=== PATIENT | male | born 1965 | race African-American/Black ===

== ENCOUNTER 2017-10-09 12:38 | Emergency (ER) | payer SELFPAY ==
[~2017-10-09] VITALS: Ht 175.3 cm; Wt 75.0 kg
[2017-10-09 12:48] VITALS: BP 127/75
[2017-10-09] MEDS ORDERED: CEFTRIAXONE 250 MG IM ONE (13:30)
[2017-10-09] MEDS ORDERED: AZITHROMYCIN 500 MG TABLET PO ONE (13:30)
[2017-10-09] MEDS ORDERED: CEFTRIAXONE 250 MG ONE (13:42)
[2017-10-09] MEDS ORDERED: LIDOCAINE-MPF 1%, 2ML ONE (13:42)
[2017-10-09] MEDS ORDERED: AZITHROMYCIN 250 MG TABLET ONE (13:45)
== END 2017-10-09 13:54 | disposition home or self-care (01) ==
LOC: ED 13:48
DX: Z20.2 Contact with and (suspected) exposure to infections with a predominantly sexual mode of transmission (principal)
CPT/HCPCS: 87491; 87591; 96372; 99284; J0696

== ENCOUNTER 2018-05-30 22:23 | Emergency (ER) | payer MEDICAID, OTHER ==
[~2018-05-30] VITALS: Ht 175.3 cm; Wt 79.7 kg
[2018-05-30 22:31] VITALS: BP 136/91
[2018-05-30] MEDS ORDERED: AZITHROMYCIN 500 MG TABLET ONE (22:57)
[2018-05-30] MEDS ORDERED: CEFTRIAXONE 250 MG ONE (22:57)
[2018-05-30] MEDS ORDERED: AZITHROMYCIN 500 MG TABLET PO ONE (23:00)
[2018-05-30] MEDS ORDERED: CEFTRIAXONE 1,000 MG IM ONE (23:00)
[2018-05-30] MEDS ORDERED: CEFTRIAXONE 250 MG IM ONE (23:00)
[2018-05-30 23:29] LABS: CULTURE INDICATED? YES; MICROSCOPIC AUTO
== END 2018-05-30 23:47 | disposition home or self-care (01) ==
LOC: ED 23:15
DX: N34.2 Other urethritis (principal); B07.0 Plantar wart
CPT/HCPCS: 81001; 87086; 87491; 87591; 96374; 99283; J0696

== ENCOUNTER 2019-02-14 04:58 | Emergency (ER) | payer MEDICAID ==
[~2019-02-14] VITALS: Ht 172.7 cm; Wt 76.1 kg
[2019-02-14 05:02] VITALS: BP 120/70
== END 2019-02-14 05:54 | disposition home or self-care (01) ==
LOC: ED 05:29
DX: S70.311A Abrasion, right thigh, initial encounter (principal); F17.210 Nicotine dependence, cigarettes, uncomplicated; X58.XXXA Exposure to other specified factors, initial encounter; Y93.89 Activity, other specified; Y92.410 Unspecified street and highway as the place of occurrence of the external cause; Y99.8 Other external cause status
CPT/HCPCS: 90471; 90715; 99283

== ENCOUNTER 2019-07-16 06:55 | Emergency (ER) | payer MEDICAID ==
[~2019-07-16] VITALS: Ht 170.2 cm; Wt 76.4 kg
[2019-07-16 06:56] VITALS: BP 135/84
--- NOTE | 2019-07-16 08:11 | NUR ---
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 PT STATING AGAIN HE NEEDS TO LEAVE, RN EDUCATED PT ON NEED FOR FOLLOW UP. PT REQUESTING LIST OF CLINIC AND LIST OF DENTAL CLINICS. LIST PROVIDED. MD NOTIFIED PT LEFT AMA.
== END 2019-07-16 08:18 | disposition left against medical advice (07) ==
LOC: ED 08:05
DX: N50.9 Disorder of male genital organs, unspecified (principal)
CPT/HCPCS: 99281

== ENCOUNTER 2019-09-08 08:47 | Emergency (ER) | payer MEDICAID ==
[~2019-09-08] VITALS: Ht 170.2 cm; Wt 75.2 kg
--- NOTE | 2019-09-08 09:44 | NUR ---
OCEAN BIOLOGIST: CALLED PT NO ANSWER
--- NOTE | 2019-09-08 09:54 | NUR ---
CARE ANALYST: PT TO ROOM FROM LOBBY VIA
[2019-09-08 10:18] LABS: MICROSCOPIC AUTO
[2019-09-08 10:23] LABS: CULTURE INDICATED? YES
[2019-09-08] MEDS ORDERED: HYDROcodone/APAP 5/325 TABLET PO PRN (10:30)
[2019-09-08] MEDS ORDERED: AZITHROMYCIN 500 MG TABLET PO ONE (10:30)
[2019-09-08] MEDS ORDERED: ONDANSETRON ODT 4 MG PO ONE (11:00)
[2019-09-08] MEDS ORDERED: CEFTRIAXONE 250 MG IM ONE (11:00)
--- NOTE | 2019-09-08 11:07 | NUR ---
REPORT GIVEN TO DEE
--- NOTE | 2019-09-08 11:08 | NUR ---
PT REPORT FROM MABEL NOWAK. PT CARE TO BE ASSUMED.
[2019-09-08 11:30] VITALS: BP 132/84
--- NOTE | 2019-09-08 12:09 | NUR ---
PT NOT IN ROOM
--- NOTE | 2019-09-08 12:15 | NUR ---
PT STANDING AT CHARGE NURSE DESK; ACCOMPANIED BACK TO ROOM; GAIT SLOW & STEADY.
[2019-09-08] MEDS ORDERED: ONDANSETRON ODT 4 MG ONE (12:42)
[2019-09-08] MEDS ORDERED: AZITHROMYCIN 250 MG TABLET ONE (12:42)
[2019-09-08] MEDS ORDERED: CEFTRIAXONE 250 MG ONE (12:42)
--- NOTE | 2019-09-08 18:22 | NUR ---
LATE ENTRY: 1250 ZOFRAN HELD; PT NOT NAUSEOUS.
== END 2019-09-08 13:14 | disposition home or self-care (01) ==
LOC: ED 11:43
DX: N45.1 Epididymitis (principal); F17.200 Nicotine dependence, unspecified, uncomplicated
CPT/HCPCS: 76870; 81001; 87086; 96372; 99284; J0696

== ENCOUNTER 2020-10-13 06:28 | Emergency (ER) | payer MEDICAID ==
[~2020-10-13] VITALS: Ht 175.3 cm; Wt 80.4 kg
[2020-10-13 06:33] VITALS: BP 142/93
--- NOTE | 2020-10-13 06:42 | NUR ---
PT CAME INTO THE ED THIS AM DUE TO BILATERAL FOOT PAIN, PT HAS PLANTAR WARTS ON RIGHT FOOT AND LEFT GREAT TOE. PT REPORTS THE PAIN IS WORSE TODAY. PT PLACED ON SPO2/BP MONITORING AT THIS TIME. VSS. BED IN LOWEST, RAILS ENGAGED, CALL LIGHT ON LAP, WCTM. FOZIA RODRIGUEZ AT FOR EVAL AND POC.
--- NOTE | 2020-10-13 06:51 | NUR ---
BEDSIDE REPORT TO NAOMY HIGH RISK CASE MANAGER OF CARE AT THIS TIME
== END 2020-10-13 07:39 | disposition home or self-care (01) ==
LOC: ED 06:50
DX: B07.0 Plantar wart (principal)
CPT/HCPCS: 82962; 99282